=== PATIENT | male | born 1950 | race Caucasian/White ===

== ENCOUNTER → 2023-10-02 14:50 | Outpatient (REF) | payer OTHER, SELFPAY ==
[2023-09-30 09:24] VITALS: BMI 31.2
[2023-09-30 10:03] LABS: % Basophils 0.7 % (0-2); % Immature Granulocytes 0.4 % (0-0.5); % Lymphocytes 31.1 % (20.5-51.1); % Monocytes 11.3 % (1.7-9.3); % Neutrophils 51.5 % (42.2-75.2); Absolute Eosinophils 0.3 10^3/uL (0-0.7); Absolute Lymphocytes 1.7 10^3/uL (1.2-3.4); Absolute Monocytes 0.6 10^3/uL (0.1-0.6); Absolute Neutrophils 2.8 10^3/uL (1.4-6.5); Hematocrit 40.3 % (39.0-52.0); Hemoglobin 13.2 g/dL (13.0-18.0); Mean Corp Hgb Conc. 32.8 g/dL (33.0-37.0); Mean Corpuscular Hgb 30.1 pg (27.0-31.0); Mean Corpuscular Volume 91.8 fL (80.0-94.0); Mean Platelet Volume 8.8 fL (7.4-10.4); Nucleated Red Blood Cells % 0 % (-); Platelet Count 188 10^3/uL (130-400); Red Blood Cell Count 4.39 10^6/uL (4.70-6.10); Red Cell Dist. Width 14.8 % (11.5-14.5); White Blood Cell Count 5.4 10^3/uL (4.8-10.8)
[2023-09-30 11:04] LABS: ALT (SGPT) 39 U/L (0-50); AST (SGOT) 42 U/L (17-59); Albumin 4.1 g/dl (3.5-5.0); Alkaline Phosphatase 76 U/L (38-126); Blood Urea Nitrogen 19 mg/dl (9-20); Carbon Dioxide 28 mmol/L (22-30); Chloride 106 mmol/L (98-107); Estimated Creatinine Clearance 87 ml/min; Glucose 84 mg/dl (70-99); Potassium 4.3 mmol/L (3.5-5.1); Sodium 140 mmol/L (135-145); Total Bilirubin 0.7 mg/dl (0.2-1.3); Total Protein 6.4 g/dl (6.3-8.2); eGFR > 60.00
== END ==
LOC: SDSPAT 14:50
PROVIDERS: ATTENDING PHYSICIAN Internal Medicine Cardiovascular Disease; FAMILY PHYSICIAN Family Medicine
DX: I47.10 Supraventricular tachycardia, unspecified (principal)
CPT/HCPCS: 36415; 80053; 83735; 85025; 93005

== ENCOUNTER → 2025-03-10 06:59 | Outpatient (REF) | payer OTHER, SELFPAY | LOC: HWRCS 06:59 | PROVIDERS: ATTENDING PHYSICIAN Internal Medicine Cardiovascular Disease; FAMILY PHYSICIAN Nurse Practitioner | DX: I10 Essential (primary) hypertension (principal); I47.10 Supraventricular tachycardia, unspecified | CPT/HCPCS: 93306 ==

== ENCOUNTER → 2025-03-12 07:26 | Outpatient (REF) | payer OTHER, SELFPAY | LOC: RCS 07:26 | PROVIDERS: ATTENDING PHYSICIAN Internal Medicine Cardiovascular Disease; FAMILY PHYSICIAN Nurse Practitioner | DX: I10 Essential (primary) hypertension (principal); I47.10 Supraventricular tachycardia, unspecified | CPT/HCPCS: 93017 ==

== ENCOUNTER 2025-04-22 07:50 | Day surgery (SDC) | payer OTHER, SELFPAY ==
[2025-04-19 08:54] VITALS: BMI 31.8
[2025-04-19 09:35] LABS: Hematocrit 45.2 % (39.0-52.0); Hemoglobin 14.8 g/dL (13.0-18.0); Mean Corp Hgb Conc. 32.7 g/dL (33.0-37.0); Mean Corpuscular Volume 89.9 fL (80.0-94.0); Nucleated Red Blood Cells % 0 % (-); Platelet Count 205 10^3/uL (130-400); Red Cell Dist. Width 14.0 % (11.5-14.5)
[2025-04-19 10:00] LABS: ALT (SGPT) 33 U/L (0-50); AST (SGOT) 30 U/L (17-59); Albumin 4.4 g/dl (3.5-5.0); Alkaline Phosphatase 67 U/L (38-126); Blood Urea Nitrogen 15 mg/dl (9-20); Calcium 9.2 mg/dl (8.4-10.2); Carbon Dioxide 31 mmol/L (22-30); Chloride 105 mmol/L (98-107); Estimated Creatinine Clearance 77 ml/min; Glucose 99 mg/dl (70-99); Magnesium 2.0 mg/dl (1.6-2.3); Potassium 4.1 mmol/L (3.5-5.1); Sodium 139 mmol/L (135-145); Total Protein 7.0 g/dl (6.3-8.2); eGFR > 60.00
--- NOTE | 2025-04-19 10:15 | HPS.HSE ---
Family Physician
-
Family Physician: JACLYN Morris
Chief Complaint
-
Supraventricular tachycardia.
History of Present Illness
The patient is a 75-year-old male presenting today for supraventricular tachycardia. The patient reports a history of palpitations associated with this diagnosis since 2019. A seven-day CAM monitor at that time predominantly showed sinus
rhythm with PACs, PVCs, and atrial tachycardia versus atypical AV node reentry tachycardia. He was also ordered an echocardiogram and stress test at that time which initially were not completed. A second monitor in January 2025 confirmed periods
of atrial tachycardia. His palpitations since his initial presentation have been increasing in frequency. He will often attempt Valsalva maneuvers to break his symptoms. Of note, he is on current pharmacological therapy with Verapamil. Given the
increasing severity of his palpitations, it is recommended he proceed with an SVT ablation at this time for further arrhythmia management. He denies any current complaints today such as chest pain, shortness of breath at rest, nausea, vomiting,
diarrhea, lightheadedness, dizziness, cough, sore throat, or fever.
Medical History
Past Medical History
Past Medical History: Reports Other
Additional Past Medical History:
1. Supraventricular tachycardia, pharmacological therapy with Verapamil.
2. PVCs and PACs, asymptomatic.
3. Hypertension.
4. Hyperlipidemia.
5. Mild-moderate left ventricular hypertrophy.
6. Mildly dilated aortic root and ascending aorta.
7. Mild mitral regurgitation.
8. Irritable bowel syndrome.
9. Peripheral neuropathy.
10. Arthritis.
11. Squamous cell carcinoma, status post recurrent Mohs.
12. Overactive bladder.
13. Multiple lipomas.
14. Insomnia.
15. Obesity, BMI 31.8.
Past Surgical History: Reports Other
Additional Past Surgical History:
1. Mohs x7.
2. Dental extraction.
Social History
Tobacco: Non-smoker
Alcohol: Occasional
Personal:
Living: Other (He lives with his in a 2 story home. )
Family History
Family History: Not pertinent
Allergies / Home Medications
Allergy/Medication List:
Home medications:
1. Cholecalciferol 2000 units p.o. daily.
2. Doxylamine succinate 25 mg p.o. at bedtime as needed.
3. Lisinopril 20 mg p.o. at bedtime.
4. Magnesium glycinate 1 tablet p.o. daily.
5. Fish oil 1 capsule p.o. daily.
6. Potassium 99 mg p.o. daily.
7. Verapamil 120 mg p.o. every 12 hours.
Allergies: No known allergies.
Review of Systems
-
A 12 point ROS was completed and negative except as noted: Yes
Physical Exam
Vital Signs
Blood pressure 146/104. Repeat blood pressure 148/96. Heart rate 116. Respirations 18. Pulse ox 99% on room air.
Height 5 feet, 10 inches. Weight 100.5 kg. BMI 31.8.
Physical Exam
General: Well Developed, Well Nourished and No Apparent Distress
HEENT: NormoCephalic, Moist mucous membranes, Atraumatic and PERRLA
Respiratory: Clear
Cardiac: Tachycardia
GI: Soft, Non Tender, Non Distended and Other (Obese. )
Musculoskeletal: No Edema and Normal Gait & Station
Skin: Warm and Dry
Neuro: AO x 3 and Nonfocal/grossly intact
Laboratory Results
-
04/19/25 09:10
04/19/25 09:10
Laboratory Results
Total Bilirubin 0.9 mg/dl (0.2-1.3) 04/19/25 09:10
AST 30 U/L (17-59) 04/19/25 09:10
ALT 33 U/L (0-50) 04/19/25 09:10
Alkaline Phosphatase 67 U/L (38-126) 04/19/25 09:10
Magnesium 2.0.
EKG 04/19/2025: Unusual P axis, possible ectopic atrial tachycardia. Left axis deviation.
Exercise stress test 03/15/2025: The patient was exercised by the Judd protocol into stage 4 for 10 minutes achieving 11 METS. The exercise ECG was negative for ischemia at 109% maximum predicted heart rate. There was arrhythmia during the study;
PVC's. The exercise tolerance was above average. Symptomatology - none. This is a low risk stress test (DTS = +10).
Echocardiogram 03/10/2025: Normal left ventricular size and systolic function; estimated ejection fraction is 55-60% by modified Molina's method. Normal regional wall motion. Mild-moderate concentric left ventricular hypertrophy. Stage I diastolic
dysfunction suggestive of abnormal relaxation. Right ventricular size and systolic function are within normal limits. Indexed left atrial volume is mildly abnormal (35-41 ml/m2). Mild mitral valve regurgitation. Mildly dilated aortic root and
ascending aorta. sinus of Valsalva is 4.1 cm., S-T junction is 3.6 cm. and proximal ascending aorta is 4.2 cm. Compared to a prior transthoracic echocardiogram study from 08/12/20, there is now left ventricular hypertrophy noted; otherwise, no
significant change.
Impression/Plan
-
IMPRESSION/PLAN:
1. Supraventricular tachycardia: The patient is in need of an SVT ablation with Dr. Cory Rodney on 04/22/2025. The benefits and risks of the procedure have been explained to the patient. The patient understands these risks and wishes to proceed. He
is aware to hold his Verapamil 5 days prior to his procedure. He will take no medications the morning of his ablation.
[2025-04-22] VITALS (14 sets, daily range): BP systolic 116–186; BP diastolic 75–116
[2025-04-22 12:09] LABS: ACT-LR - POC 277 Seconds (116-155)
[2025-04-22] MEDS: TAMBOCOR 50 MG PO (12:52)
--- NOTE | 2025-04-22 13:23 | ITS.CL.ABL ---
[facility] - Ablation
Ablation
Procedure Report:
ELECTROPHYSIOLOGY ABLATION REPORT
Date of Procedure: April 22, 2025
Referring: Dr. Ramsey Craig
INDICATION: Paroxysmal SVT which sometimes breaks with Valsalva and IV calcium channel linnea
HISTORY: Relatively narrow P wave which is positive in V1 and flattened negative across the precordium as well as slightly positive in lead II and negative in lead III and aVF.
PROCEDURE:
Under ultrasound guidance the right and left femoral veins were accessed with direct visualization of each sheath in each femoral vein. 8 9 [place] sheath to the right femoral vein and 7 and 6 [place] sheaths to the left femoral vein. At the end of
the procedure protamine was given and [id number] suture was given to each femoral vein. Baseline intracardiac measurements were obtained in sinus rhythm.��HRA, HIS, RVA and CS catheters were placed. 3D mapping was utilized with the JONI
system. Activation and entrainment mapping was performed with the multipolar grid catheter. As the tachycardia was easily inducible isoproterenol was not required.
Atrial decremental extrastimuli were delivered from the HRA and the CS.��Single and double extrastimuli as well as burst pacing were performed from both sites in both the baseline state scratch..��Atrial and AVN antegrade ERP�s were
determined.��Antegrade as well as retrograde AVN [place] CL�s were determined.
MEASUREMENTS:
BASELINE
A-A:�1200 ms
P-P:���1200 ms
A-H:�88 ms
H-V����50 ms
P-R:���140 ms
QRS:�80 ms
QT:����380 ms
SNRT: Normal at 600 ms
AVN Wenckebach: Less than 400 ms
AVN Fast Pathway ERP: 600�310 ms
AVN Slow Pathway ERP: 600�310 ms no evidence for slow pathway
HIS-Purkinje System: Normal; no distal block
Retrograde Conduction Decremental, Retrograde Block for 10 ms
Evidence for atrial tachycardia as the tachycardia diagnosis included: (1)��An ecentric atrial activation sequence during SVT with earliest atrial activation located at the fast pathway position along the decapolar CS catheter, (2) ventricular
pacing from the RVA at a faster cycle length repetitively demonstrated a VAAV response (3) atrial activation conducted in the ventricle 1-1 with the NM interval similar to clinical ECG at 190 ms and conversely a long RP tachycardia. (4) Initiation
of SVT was not dependent on a critical AH interval (slow pathway engagement), (5) Ventricular pacing at a CL 20-30 ms faster than the SVT CL during the SVT demonstrated advancement of the atrial electrogram to the pacing CL and when
pacing was terminated, a V-A-A-V pattern with continuation of SVT was observed excluding a mechanism of AV alex reentry and AV reentry
SVT was initiated by both ventricular extrastimuli and atrial extrastimuli and was easy to induce from both atrium and ventricle.
SVT could be terminated by atrial extrastimuli or ventricular extrastimuli suggesting that the arrhythmia was originating from near or at the proximal conduction system.
The SVT cycle length was 480�510 ms.; SVT was well-tolerated hemodynamically.
Atrial tachycardia mapping:
We utilized a multipolar grid catheter and 3D mapping system with JONI for biatrial mapping. Utilizing a multipolar grid a 17,000 point biatrial map was created. We also mapped areas contiguous with the noncoronary cusp from both the right and left
atrium. Activation mapping suggested that the noncoronary cusp was activating late although we did not specifically map the coronary cusp from the aorta. Earliest activation was at the roof of the coronary sinus in the area of the compact AV node.
There was a 1-4 AV ratio with a small far field his bundle recording and we were approximately 35 ms pre-P wave and 25 ms precoronary sinus activation. We then mapped both atria which were activating in a sequential and passive faction from the
area of focal activation. The local earliest activation demonstrated a QS pattern on the unipolar atrial electrogram also reinforcing site of origin at the area of earliest activation which was mapped.
The intracardiac ultrasound catheter was positioned in the RA to identify the FO for targeting of transseptal puncture.
A transseptal approach was utilized to access the left atrium for mapping.��Intracardiac ultrasound was used for guidance for transseptal puncture. The patient's anatomy was extremely challenging for transseptal puncture and a safe step wire was
utilized along with the 10 [place] steerable sheath. There was a very narrow window to the interatrial fossa with a small left atrium with intracardiac ultrasound views demonstrating a close proximity to both the aorta and the posterior pericardial
sinus. This entailed advancing an 10 [place] steerable sheath with dilator into the superior vena cava and withdrawing both (monitoring intracardiac ultrasound, fluoroscopy and tip pressure) with the tip oriented toward the atrial septum.��The fossa
ovalis was engaged (indicated by sudden displacement of the sheath tip as well as tenting of the fossa seen on intracardiac ultrasound).��Given the relatively narrow window to cross in the left atrium a safe step wire was utilized with great care to
make sure this was in the left atrium rather than the aorta or pericardial space and once the safe hip wire was confirmed access in the left atrium we brought the dilator and 10 [place] steerable sheath into the left atrium. Left atrial access
required a pass with the Brock[place]rough needle extended.��Left atrial catheter position was confirmed by pressure monitoring (RA mean pressure 2 mm Hg and LA mean presure 10 mm Hg) as well as fluoroscopy.��The sheath was advanced over the dilator and
positioned in the left atrium.��Heparin was infused to maintain ACT at 300 -350 seconds throughout the case.
Given that the patient's paroxysmal atrial tachycardia was determined to be right from the compact AV node�Para-Hisian region on the right side I elected not to perform ablation given the high risk for need for permanent pacing.
COMPLICATIONS: None
SUMMARY: Right atrial tachycardia with earliest activation at the compact AV node�parahisian region as above.
RECOMMENDATIONS:
1. As verapamil did not bring about clinical efficacy we will discontinue this medication. We will initiate Toprol XL 12.5 mg daily and flecainide 50 mg twice daily as his LV thickness is 1.3 mm.
2. I discussed with in detail after procedure and provided visualization of the by atrial activation map to explain details of procedure. We discussed that if he has breakthrough through antiarrhythmic drug therapy we could consider an
attempted ablation with either radiofrequency or more likely cryoablation but would still expect a 10 to 25% pacemaker rate with the atrial tachyarrhythmia in this location. As he has not had a myopathy or persistent symptoms I discussed that I
would recommend trying antiarrhythmic drug therapy as above first. He will initiate flecainide in our holding area today at 50 mg twice daily and we will arrange for an ECG in the office either tomorrow or April 26.
== END 2025-04-22 17:30 | disposition home or self-care (01) ==
LOC: CATH 07:50
PROVIDERS: ATTENDING PHYSICIAN Internal Medicine Cardiovascular Disease; FAMILY PHYSICIAN Nurse Practitioner
DX: I47.19 Other supraventricular tachycardia (principal); E66.9 Obesity, unspecified; E78.5 Hyperlipidemia, unspecified; I10 Essential (primary) hypertension; I49.3 Ventricular premature depolarization; K58.9 Irritable bowel syndrome, unspecified; M19.90 Unspecified osteoarthritis, unspecified site; N32.81 Overactive bladder; Z68.31 Body mass index [BMI] 31.0-31.9, adult; Z79.899 Other long term (current) drug therapy; D17.9 Benign lipomatous neoplasm, unspecified; G62.9 Polyneuropathy, unspecified; I34.0 Nonrheumatic mitral (valve) insufficiency
CPT/HCPCS: C1730; C1732; C1766; C1892; C1759; 36415; 80053; 83735; 85025; 85347; 93005; 93653; C1894